=== PATIENT | female | born 1940 | race African-American/Black ===

== ENCOUNTER 2018-07-28 08:19 | Emergency (ER) | payer MEDICARE, MEDICAID ==
[2018-07-28] MEDS ORDERED: Acetaminophen 500 MG TAB ONE (09:18)
== END 2018-07-28 10:45 | disposition home or self-care (01) ==
LOC: ERS 08:19
DX: K62.3 Rectal prolapse (principal); I10 Essential (primary) hypertension; J43.9 Emphysema, unspecified; F41.9 Anxiety disorder, unspecified; F32.9 Major depressive disorder, single episode, unspecified; Z79.899 Other long term (current) drug therapy; Z87.891 Personal history of nicotine dependence
CPT/HCPCS: 99283

== ENCOUNTER 2019-08-31 17:23 | Observation (INO) | payer MEDICARE, MEDICAID ==
[2019-08-31 18:23] LABS: #Eosinphils 0.1 thou/uL (0.0-0.7); #Lymphocytes 1.8 thou/uL (1.20-3.40); #Monocytes 0.4 thou/uL (0.11-0.59); #Neutrophils 6.3 thou/uL (1.40-6.50); %Basophils 0.5 % (0.0-1.0); %Lymphocytes 21.1 % (21.0-51.0); %Monocytes 4.8 % (0.0-10.0); %Neutrophils 72.7 % (42.0-75.0); Hemoglobin 14.3 g/dL (12.0-16.0); Mean Corpuscular HGB CONC 32.9 g/dL (32.0-36.0); Mean Corpuscular Hemoglobin 28.9 pg (27.0-31.0); Mean Corpuscular Volume 87.9 fL (78.0-98.0); Mean Platelet Volume 7.7 fL (7.4-10.4); Platelet Count 230 thou/uL (130-400); RBC Distribution Width 14.5 % (11.5-14.5); Red Blood Cell (RBC) Count 4.94 mill/uL (4.20-5.40); White Blood Cell (WBC) Count 8.6 thou/uL (4.8-10.8)
--- NOTE | 2019-08-31 18:37 | RAD ---
EXAM: Portable chest PROVIDED CLINICAL HISTORY: Nausea and vomiting COMPARISON: 12/26/2014 FINDINGS: Cardiac silhouette appears enlarged, which may be least partially on the basis of portable technique. Rotation of the examination accentuates the appearance of the right hilum. No focal consolidation, pleural fluid or pneumothorax evident. IMPRESSION: No evidence for an acute cardiopulmonary process.
[2019-08-31 18:43] LABS: ALT (SGPT) Less than 7 U/L (8-55); AST (SGOT) 11 U/L (5-34); Albumin 4.6 g/dL (3.4-4.8); Alkaline Phosphatase 62 U/L (40-110); Anion Gap 17 mmol/L (10-20); BUN (Urea Nitrogen) 15 mg/dL (9.8-20.1); Bilirubin, Total 0.5 mg/dL (0.2-1.2); Calc. Creatinine Clearance 0 mL/min (70-130); Calcium 9.8 mg/dL (7.8-10.44); Carbon Dioxide 22 mmol/L (23-31); Chloride 106 mmol/L (98-107); Estimated GFR-MDRD 59; Globulin 3.6 g/dL (2.4-3.5); Glucose 94 mg/dL (83-110); Potassium 3.7 mmol/L (3.5-5.1); Protein, Total 8.2 g/dL (6.0-8.3); Sodium 141 mmol/L (136-145)
[2019-08-31 20:02] LABS: Bacteria/HPF None Seen HPF (None Seen); Bilirubin Negative (Negative); Blood, Urine Negative (Negative); Clarity Clear (Clear); Glucose, Urine (Dipstick) Normal (Negative); Leukocyte 75 Leu/uL (Negative); Nitrite Negative (Negative); Protein, Urine (Dipstick) Negative (Neg-Trace); RBC/HPF 0-3 HPF (0-3); Urobilinogen Normal mg/dL (Less than 2)
--- NOTE | 2019-08-31 20:51 | CT ---
Exam: CT brain PROVIDED CLINICAL HISTORY: Dizziness COMPARISON: None FINDINGS: The ventricular system is normal in size and morphology. Evaluation is limited by patient motion. Th ere is no evidence for mass-producing intracranial hemorrhage. Chronic microvascular ischemic changes are seen involving the cerebral white matter. The extracranial soft tissues and osseous struc tures demonstrate no evidence for an acute abnormality. IMPRESSION: No evidence for intracranial hemorrhage or mass effect with limitations as above.
[2019-08-31] MEDS ORDERED: Acetaminophen 325 MG TAB PO PRN (21:26)
--- NOTE | 2019-08-31 21:55 | PDOC.EVN ---
Event Note - Event Note Event Note: [id number]
[2019-08-31 22:56] VITALS: BMI 22.2
[2019-08-31] MEDS ORDERED: Ondansetron ODT 4 MG TAB SL PRN (23:06)
[2019-08-31] MEDS ORDERED: Ondansetron PF 4 MG/2 ML Vial IVP PRN (23:06)
[2019-08-31] MEDS ORDERED: HYDROcodone/Acetaminophen 5/325 mg Tablet PO PRN ×2 (23:06)
[2019-09-01] MEDS ORDERED: traMADol HCl 50 MG TAB PO PRN (00:16)
[2019-09-01] MEDS: Melatonin 3 MG TAB PO PRN ×2 (00:49→20:49)
--- NOTE | 2019-09-01 01:45 | HP ---
CHIEF COMPLAINT: Dizziness and possible syncope. HISTORY OF PRESENT ILLNESS: Ms. Aceves is a 78-year-old female with past medical history of COPD, emphysema, osteoporosis, hypertension, presented to the emergency room with dizziness that started suddenly this morning followed by ? syncope, also associated with nausea and vomiting. The patient states that she is not feeling well. She does not want to eat. She feels that she is dehydrated. She denies chest pain or palpitations. Denies fever or chills. Denies abdominal pain. Initial workup in the emergency room including CT of the brain, no acute finding. Troponin is less than 0.01. Electrolytes unremarkable. Chest x-ray, no acute finding. CT of the brain, no acute findings. The patient is being admitted to the hospital for further management. PAST MEDICAL HISTORY: 1. Osteoporosis. 2. COPD/emphysema. 3. Hypertension. PAST SURGICAL HISTORY: Tubal ligation. PAST PSYCHIATRIC HISTORY: Anxiety and depression. SOCIAL HISTORY: She smokes marijuana. Denies alcohol use. She is a former cigarette smoker. FAMILY HISTORY: Reviewed and noncontributory. HOME MEDICATIONS: See home medication reconciliation form for updated medications. ALLERGIES: NO KNOWN ALLERGIES. REVIEW OF SYSTEMS: Review of 14 systems negative except what is mentioned in history of present illness. PHYSICAL EXAMINATION: GENERAL: The patient is awake, alert, does not appear to be in acute distress. VITAL SIGNS: Blood pressure 130/79, pulse is 82, respiratory rate is 21, temperature 97.5. HEAD: Normocephalic, atraumatic. NECK: Supple. No JVD. CHEST: Fair bilateral air entry. HEART: S1, S2. Regular. ABDOMEN: Soft, nontender. Bowel sounds present. NEUROLOGIC: Awake, alert, and oriented x3. No focal deficits. PSYCHIATRIC: Normal mood. EXTREMITIES: No clubbing or cyanosis. LABORATORY DATA: As mentioned above in history of present illness. Chest x-ray is as mentioned above in history of present illness. CT of the brain as mentioned above in the history of present illness. ASSESSMENT: 1. Dizziness. 2. Syncope ? 3. Weakness. 4. Chronic obstructive pulmonary disease/emphysema. 5. Hypertension. PLAN: 1. Admit. 2. Telemetry monitoring. 3. Frequent neuro checks. 4. IV fluid hydration. 5. MRI of the brain. 6. 2D echo. 7. PT/OT eval and treat. 8. Reconcile home medications. 9. DVT prophylaxis as appropriate. 10. Expected length of stay at least one midnight if the patient is stable and further workup negative. Job ID: [id number]
[2019-09-01 04:56] LABS: #Eosinphils 0.1 thou/uL (0.0-0.7); #Lymphocytes 2.1 thou/uL (1.20-3.40); #Monocytes 0.5 thou/uL (0.11-0.59); #Neutrophils 3.6 thou/uL (1.40-6.50); %Basophils 0.6 % (0.0-1.0); %Eosinophils 1.1 % (0.0-10.0); %Lymphocytes 33.2 % (21.0-51.0); %Monocytes 8.3 % (0.0-10.0); %Neutrophils 56.8 % (42.0-75.0); Hemoglobin 12.7 g/dL (12.0-16.0); Mean Corpuscular HGB CONC 33.4 g/dL (32.0-36.0); Mean Corpuscular Volume 86.9 fL (78.0-98.0); Mean Platelet Volume 7.5 fL (7.4-10.4); Platelet Count 210 thou/uL (130-400); RBC Distribution Width 14.3 % (11.5-14.5); Red Blood Cell (RBC) Count 4.37 mill/uL (4.20-5.40); White Blood Cell (WBC) Count 6.3 thou/uL (4.8-10.8)
[2019-09-01 05:19] LABS: Anion Gap 11 mmol/L (10-20); BUN (Urea Nitrogen) 9 mg/dL (9.8-20.1); Calc. Creatinine Clearance 57 mL/min (70-130); Calcium 9.4 mg/dL (7.8-10.44); Carbon Dioxide 24 mmol/L (23-31); Chloride 111 mmol/L (98-107); Cholesterol 166 mg/dl (< 200 Desired); Estimated GFR-MDRD 87; Glucose 88 mg/dL (83-110); HDL Cholesterol 55 mg/dL (>60 Neg Risk); LDL Cholesterol, Calculated 95 mg/dL; Potassium 3.7 mmol/L (3.5-5.1); Sodium 142 mmol/L (136-145); Triglycerides 80 mg/dL (Less than 150)
[2019-09-01] MEDS: Mometasone/Formoterol 120 PUFF INHALER INH SCH ×2 (07:26→18:39)
[2019-09-01] MEDS ORDERED: Heparin 5,000 UNITS/ML VIAL SC SCH (09:00)
[2019-09-01] MEDS ORDERED: Amlodipine 10 MG TAB PO SCH (09:00)
[2019-09-01] MEDS ORDERED: Losartan 25 MG TAB PO SCH (09:00)
[2019-09-01] MEDS ORDERED: Naproxen 500 MG TAB PO PRN (09:00)
[2019-09-01] MEDS: Famotidine 20 MG TAB PO SCH ×2 (09:07→20:49)
[2019-09-01] MEDS: Aspirin 81 mg Enteric Coated Tablet PO SCH (09:07)
[2019-09-01] MEDS: Metoprolol Tartrate 25 MG TAB PO SCH ×2 (09:07→20:49)
[2019-09-01] MEDS: Montelukast Sodium 10 mg Tablet PO SCH (09:07)
[2019-09-01] MEDS: Heparin 5,000 UNITS/ML VIAL SC SCH ×3 (09:08→20:48)
[2019-09-01] MEDS: Sodium Chloride 0.9% 1,000 ML IV SCH ×2 (09:11→10:30)
--- NOTE | 2019-09-01 10:19 | MRI ---
MRI BRAIN WITHOUT CONTRAST: HISTORY: TIA CORRELATION: CT scan from 08/31/2019. FINDINGS: No restricted diffusion is seen. There are multiple foci of T2 prolongation in the periventricular wh ite matter, consistent with chronic small vessel ischemic disease. The ventricular size is appropriate and the basilar cisterns are patent. No evidence of acute infarct, hemorrhage, midline shift or abnormal extra-axial fluid collections is seen. IMPRESSION: No evidence of acute intracranial process.
[2019-09-01] MEDS ORDERED: Iopamidol 370 76% 100 ML VIAL ONE (10:55)
[2019-09-01] MEDS ORDERED: Scopolamine 1.5 mg/72 hour Patch TD SCH (15:00)
[2019-09-01] MEDS: cefTRIAXone\\ROCEPHIN 1 GM in Sodium Chloride 0.9% 100 ML IVPB SCH (16:52)
--- NOTE | 2019-09-01 17:18 | CON ---
DATE OF CONSULTATION: 09/01/2019 CHIEF COMPLAINT: Dizziness. HISTORY OF PRESENT ILLNESS: The patient reports she felt dizzy and had been throwing up. She felt like everything was spinning. She felt wobbly as well when walking. She does not have any ear problems. She does have a cough and upper respiratory infection. She has no history of any vision problems. No numbness. No weakness of the extremities was described to me and since her admission to the ER, she has completed most of her workup. PREVIOUS MEDICAL HISTORY: Includes hypertension, COPD, emphysema, and osteoporosis. PAST SURGICAL HISTORY: Includes tubal ligation, ovarian cyst. PREVIOUS PSYCHIATRIC HISTORY: Positive for anxiety and depression. SOCIAL HISTORY: She smokes marijuana. Denies no alcohol use. She used to smoke cigarettes in the past. FAMILY HISTORY: She has 1 brother and 2 sisters. One sister from lupus and the other due to drug use. Mother in her 80s to 90s. Father at 65 years of age. REVIEW OF SYSTEMS: PULMONARY: Positive for COPD. GI: Positive for nausea and vomiting. ENT: Negative for any ear problems. OPHTHALMOLOGIC: Negative for any vision issues. DERMATOLOGIC: Negative for any skin lesions. HEMATOLOGIC: Negative for any bleeding diathesis. CURRENT LABORATORY WORKUP: White count 6.3, hemoglobin 12.7, hematocrit 38, platelet count 210. Sodium 142, potassium 3.7, chloride 111, bicarb 24, BUN 9, creatinine 0.78, and glucose 88. Liver functions are within normal limits and lipid profile is normal. Her MRI of the brain was negative for any acute stroke and echocardiogram showed normal EF at 55% to 60%, normal-sized left atrium, some thickening of aortic valve leaflets, and diastolic dysfunction. No thrombus was noted. CT angio has not been done and I requested the same. PHYSICAL EXAMINATION: VITAL SIGNS: Temperature 99; pulse 71; blood pressure was 135/83 supine, standing was 112/83, sitting blood pressure 122/78. GENERAL APPEARANCE: Well-built, well-nourished lady, who is lying in bed. CHEST: Clear vesicular breathing, but she had rhonchi as well. CARDIOVASCULAR: S1 and S2 heard. No murmurs. ABDOMEN: Soft and nontender. No organomegaly noted. NEUROLOGIC: Higher intellectual functions. Normal oriented to time, place, and person. Appropriate conversation. Cranial nerves 2 through 12, normal extraocular movements. Pupils are 2 mm, reactive to light bilaterally with arcus senilis. Normal sensation of face bilaterally and tongue midline. No atrophy noted. Normal elevation of palate. Normal hearing bilaterally to finger rub. Motor exam; bulk normal, tone normal. Strength is 5/5 in upper and lower extremities at iliopsoas, hamstrings, quadriceps, ankle dorsiflexion, plantar flexion, deltoid, biceps, triceps, wrist extension and flexion, finger extension and flexion bilaterally. Deep tendon reflexes were 1+ throughout. Sensory was normal and normal touch bilaterally. Cerebellar, normal [id number] and [id number]. IMPRESSION: The patient is a 78-year-old lady with history of vertigo, which just started yesterday and currently, she is asymptomatic. Her symptoms have improved. She also had poor balance. No weakness, numbness, or vision symptoms are described, so current examination is normal. Diagnosis is most consistent with vertigo. Differential diagnosis is whether it is peripheral or central vertigo. RECOMMENDATIONS: 1. I would suggest scopolamine patch to help with vertiginous symptoms. 2. Please look into replenishing her IV fluids to see if the orthostatic blood pressure changes also improved, which can contribute to dizziness, but not vertigo. 3. I will request a CT angiogram of head and neck area to see if there is any vascular vaso-occlusive disease. I will follow up with you tomorrow. Job ID: [id number]
--- NOTE | 2019-09-01 18:10 | CT ---
CTA OF THE HEAD WITH AND WITHOUT IV CONTRAST AND 3-D REFORMATTED IMAGING. CTA OF THE NECK WITH IV CONTRAST AND 3-D REFORMATTED IMAGING. INDICATION: Vertigo; concern for stroke and TIA COMPARISON: MR the brain dated September 01, [address] of the brain dated August 31, 2019. FINDINGS: CTA OF THE HEAD WITH AND WITHOUT CONTRAST: NONCONTRAST CT OF BRAIN: Hemorrhage: None [place]/Infarction: None. Midline Shift: None. Hydrocephalus: None. Skull and Extracranial Soft tissues: Normal. 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 No hemodynamically significant stenosis is evident. Right MCA: Patent. Right ALBERTO: Patent. ACOM: Patent. Left ICA: Patent. Left MCA: Patent. Left ALBERTO: Patent. PCOMs: Patent. Vertebral arteries: Patent. Basilar Artery: Patent. safety technician: Patent. Incidentals: None. CTA OF THE NECK WITH CONTRAST: Right CCA: Patent. Right ICA: Tortuous but patent Right Subclavian: Patent. Right Vertebral Artery: Patent. Left CCA: Patent. Left ICA: Tortuous but patent Left Subclavian: Patent. Left Vertebral Artery: Patent. Aerodigestive tract: Clear. Parotids/Submandibular/Thyroid glands: There are multiple nodules involving the thyroid gland. The l argest is seen within the left mid thyroid lobe measuring 1.8 cm. Lymph nodes: No pathologically enlarged lymph nodes. Lung Apices: Emphysema pleural-parenchymal scarring involving the lung apices. Bones: Stable wedge compression fracture of T6 when compared to a CT of the thorax dated 01/12/2012. Incidentals: None. IMPRESSION: 1. No hemodynamically significant stenosis, occlusion or aneurysmal formation. 2. Congenital persistent right trigeminal artery. 3. Thyroid nodules. Follow-up nonemergent thyroid ultrasound is recommended.
--- NOTE | 2019-09-01 20:48 | PDOC.HOSPP ---
- Subjective Encounter Date: 09/01/19 Encounter Time: 15:00 Subjective: Patient seen and examined for near syncope. Orthostatic vitals positive. No CP/ SOB. No new complaints. No overnight events - Objective Vital Signs & Weight: Vital Signs (12 hours) Temp Pulse Pulse Resp BP BP Pulse Ox 09/01/19 19:24 99.0 F 83 16 128/72 96 09/01/19 15:26 99.0 F 71 16 121/75 96 09/01/19 12:03 98.9 F 71 20 128/70 96 09/01/19 09:37 74 112/83 Weight Admit Weight 129 lb 11.2 oz Weight 129 lb 11.2 oz I&O: 08/31/19 09/01/19 09/02/19 06:59 06:59 06:59 Intake Total 770 1070 Output Total 650 600 Balance 120 470 Result Diagrams: 09/01/19 04:36 09/01/19 04:36 Radiology Reviewed by me: Yes (MRI brain - No CVA) EKG Reviewed by me: Yes (Tele SR) Hospitalist ROS - Review of Systems Respiratory: denies: cough, dry, shortness of breath, hemoptysis, SOB with excertion, pleuritic pain, sputum, wheezing, other Cardiovascular: denies: chest pain, palpitations, orthopnea, paroxysmal noc. dyspnea, edema, light headedness, other - Medication Medications: Active Medications Generic Name Dose Route Start Last Admin Trade Name Freq PRN Reason Stop Dose Admin Aspirin 81 mg 09/01/19 09:00 09/01/19 09:07 Ecotrin PO 81 mg DAILY LEDY Administration Famotidine 20 mg 09/01/19 09:00 09/01/19 09:07 Pepcid PO 20 mg BID LEDY Administration Ceftriaxone Sodium 1 gm/ 100 mls @ 200 mls/hr 09/01/19 15:00 09/01/19 16:52 Sodium Chloride IVPB 100 mls 1500 LEDY Administration Melatonin 3 mg 09/01/19 00:16 09/01/19 00:49 Melatonin PO 3 mg HS PRN Administration Insomnia Metoprolol Tartrate 25 mg 09/01/19 09:00 09/01/19 09:07 Lopressor PO 25 mg BID LEDY Administration Mometasone Furoate/Formoterol Fumar 2 puff 09/01/19 06:30 09/01/19 18:39 Dulera 200 Mcg/5 Mcg Inhaler INH 2 puff BID-RT LEDY Administration Montelukast Sodium 10 mg 09/01/19 09:00 09/01/19 09:07 Singulair PO 10 mg DAILY LEDY Administration Scopolamine 1.5 mg 09/01/19 15:00 09/01/19 16:52 Transderm Scop TD 1.5 mg Q3D LEDY Administration - Exam General Appearance: NAD Neck: no JVD Heart: RRR, no gallops, no rubs, normal peripheral pulses Respiratory: CTAB, no wheezes, no rales, no ronchi Gastrointestinal: soft, non-tender, non-distended, normal bowel sounds Extremities: no cyanosis, no edema Hosp A/P - Plan DVT proph w/SCDs Gen weakness/Near syncope prob due to Orthostatic hypotension/E coli UTI (POA) HTN CKD 2 Anxiety COPD PLAN: IV Ceftriaxone for UTI Reduce Amlodipine and Losartan dose Cont other meds MRI brain - neg Check Vit B12 and folic acid in AM Fall precautions PT
[2019-09-01] MEDS: Mirtazapine 15 MG Soltab PO SCH (20:49)
[2019-09-01] MEDS: Atorvastatin Calcium 20 MG TAB PO SCH (20:49)
[2019-09-02] MEDS: Mometasone/Formoterol 120 PUFF INHALER INH SCH ×2 (07:55→19:17)
[2019-09-02] MEDS: Metoprolol Tartrate 25 MG TAB PO SCH ×2 (09:16→20:43)
[2019-09-02] MEDS: Famotidine 20 MG TAB PO SCH ×2 (09:16→20:43)
[2019-09-02] MEDS: Losartan 25 MG TAB PO SCH (09:16)
[2019-09-02] MEDS: Montelukast Sodium 10 mg Tablet PO SCH (09:16)
[2019-09-02] MEDS: Amlodipine 5 MG TAB PO SCH (09:16)
[2019-09-02] MEDS: Aspirin 81 mg Enteric Coated Tablet PO SCH (09:16)
[2019-09-02] MEDS: Saccharomyces boulardii 250 MG CAP PO SCH (09:16)
[2019-09-02] MEDS: Heparin 5,000 UNITS/ML VIAL SC SCH ×2 (09:17→20:44)
[2019-09-02] MEDS ORDERED: Megestrol Acetate 800 MG/20 ML UDCUP PO SCH (13:00)
[2019-09-02] MEDS: cefTRIAXone\\ROCEPHIN 1 GM in Sodium Chloride 0.9% 100 ML IVPB SCH (15:14)
--- NOTE | 2019-09-02 18:28 | PRG ---
DATE OF SERVICE: 09/02/2019 CHIEF COMPLAINT: Dizziness. INTERVAL HISTORY: The patient reports she is no longer dizzy and is feeling very good and is planned for discharge tomorrow. Her CT angiogram results were reviewed with the patient, and they were negative, and information was conveyed to the patient. Please continue scopolamine patch for now, and she can see a neurologist as needed once discharged. Job ID: [id number]
[2019-09-02] MEDS: Melatonin 3 MG TAB PO PRN (20:43)
[2019-09-02] MEDS: Atorvastatin Calcium 20 MG TAB PO SCH (20:43)
[2019-09-02] MEDS: Mirtazapine 15 MG Soltab PO SCH (21:07)
[2019-09-03] MEDS: Mometasone/Formoterol 120 PUFF INHALER INH SCH (07:22)
[2019-09-03 07:37] VITALS: BP 121/79; TEMP 99
[2019-09-03] MEDS: Aspirin 81 mg Enteric Coated Tablet PO SCH (08:05)
[2019-09-03] MEDS: Metoprolol Tartrate 25 MG TAB PO SCH (08:05)
[2019-09-03] MEDS: Losartan 25 MG TAB PO SCH (08:05)
[2019-09-03] MEDS: Amlodipine 5 MG TAB PO SCH (08:05)
[2019-09-03] MEDS: Montelukast Sodium 10 mg Tablet PO SCH (08:05)
[2019-09-03] MEDS: Famotidine 20 MG TAB PO SCH (08:05)
[2019-09-03] MEDS: Saccharomyces boulardii 250 MG CAP PO SCH (08:05)
[2019-09-03] MEDS: Heparin 5,000 UNITS/ML VIAL SC SCH (08:06)
[2019-09-03] MEDS ORDERED: Megestrol Acetate 800 MG/20 ML UDCUP PO SCH (09:00)
== END 2019-09-03 12:11 | disposition home or self-care (01) ==
LOC: ERS 17:23 → 2SW 21:10
PROVIDERS: ADMIT Internal Medicine; ATTEND Internal Medicine
DX: R42 Dizziness and giddiness (principal); R53.1 Weakness; J43.9 Emphysema, unspecified; I12.9 Hypertensive chronic kidney disease with stage 1 through stage 4 chronic kidney disease, or unspecified chronic kidney disease; N18.2 Chronic kidney disease, stage 2 (mild); F41.9 Anxiety disorder, unspecified; F32.9 Major depressive disorder, single episode, unspecified; M81.0 Age-related osteoporosis without current pathological fracture; Z79.899 Other long term (current) drug therapy; Z87.891 Personal history of nicotine dependence
CPT/HCPCS: 70450; 70496; 70498; 70551; 71045; 80048; 80053; 80061; 82607; 82746; 84484; 85025 ×2; 87077; 87086; 87186; 93005; 93306; 94640 ×4; 96361 ×3; 96365; 96372 ×2; 96376; 97139 ×5; 99285; G0378 ×5; 36415; 81003; 81015; 96360; J0696; J1644; J3490; J7620; Q9967

== ENCOUNTER 2020-02-18 11:53 | Emergency (ER) | payer MEDICARE, OTHER ==
[2020-02-18] MEDS ORDERED: Acetaminophen 325 MG TAB ONE (13:06)
== END 2020-02-18 13:00 | disposition home or self-care (01) ==
LOC: ERS 11:53
DX: H92.01 Otalgia, right ear (principal); I10 Essential (primary) hypertension; J43.9 Emphysema, unspecified; M81.0 Age-related osteoporosis without current pathological fracture; F41.9 Anxiety disorder, unspecified; F32.9 Major depressive disorder, single episode, unspecified; Z87.891 Personal history of nicotine dependence; Z79.899 Other long term (current) drug therapy; Z79.891 Long term (current) use of opiate analgesic
CPT/HCPCS: 99283

== ENCOUNTER 2021-12-27 00:03 | Observation (INO) | payer MEDICARE, MEDICAID ==
[2021-12-27 00:30] LABS: #Eosinphils 0.1 thou/uL (0.0-0.7); #Lymphocytes 2.3 thou/uL (1.20-3.40); #Monocytes 0.5 thou/uL (0.11-0.59); %Basophils 0.3 % (0.0-1.0); %Eosinophils 1.1 % (0.0-10.0); %Lymphocytes 28.7 % (21.0-51.0); %Monocytes 6.8 % (0.0-10.0); %Neutrophils 63.2 % (42.0-75.0); Hemoglobin 12.6 g/dL (12.0-16.0); Mean Corpuscular HGB CONC 32.1 g/dL (32.0-36.0); Mean Corpuscular Hemoglobin 30.3 pg (27.0-31.0); Mean Corpuscular Volume 94.5 fL (78.0-98.0); Mean Platelet Volume 7.7 fL (7.4-10.4); Platelet Count 193 thou/uL (130-400); RBC Distribution Width 14.8 % (11.5-14.5); Red Blood Cell (RBC) Count 4.16 mill/uL (4.20-5.40); White Blood Cell (WBC) Count 7.8 thou/uL (4.8-10.8)
[2021-12-27] MEDS ORDERED: Aspirin Chewable 81 MG TAB ONE (00:37)
[2021-12-27 00:39] LABS: INR-International Normal Ratio 1.1; PTT 27.7 sec (22.9-36.1); Prothrombin Time 14.4 sec (12.0-14.7)
[2021-12-27 00:49] LABS: ALT (SGPT) 11 U/L (8-55); AST (SGOT) 20 U/L (5-34); Albumin 3.5 g/dL (3.4-4.8); Alkaline Phosphatase 42 U/L (40-110); Anion Gap 14 mmol/L (10-20); BUN (Urea Nitrogen) 14 mg/dL (9.8-20.1); Bilirubin, Total 0.2 mg/dL (0.2-1.2); Calc. Creatinine Clearance 0 mL/min (70-130); Calcium 8.2 mg/dL (7.8-10.44); Carbon Dioxide 18 mmol/L (23-31); Chloride 110 mmol/L (98-107); Globulin 2.7 g/dL (2.4-3.5); Glucose 124 mg/dL (83-110); Potassium 3.4 mmol/L (3.5-5.1); Protein, Total 6.2 g/dL (5.8-8.1); Sodium 139 mmol/L (136-145)
[2021-12-27 01:03] LABS: Bacteria/HPF None Seen HPF (None Seen); Bilirubin Negative (Negative); Blood, Urine Negative (Negative); Clarity Clear (Clear); Glucose, Urine (Dipstick) Normal (Negative); Ketone, Urine Negative (Negative); Leukocyte Negative Leu/uL (Negative); Nitrite Negative (Negative); Protein, Urine (Dipstick) 30 mg/dL (Neg-Trace); RBC/HPF 0-3 HPF (0-3); Specific Gravity, Urine 1.019 (1.002-1.036); Squamous Epithelial 0-3 HPF (0-3); Urobilinogen Normal mg/dL (Less than 2); WBC/HPF 0-3 HPF (0-3)
[2021-12-27 02:05] LABS: Amphetamine Not Detected (NotDetected); Barbiturates Screen Not Detected (NotDetected); Benzodiazepine Screen Not Detected (NotDetected); Cocaine Metabolite Screen Not Detected (NotDetected); Methadone Not Detected (NotDetected); Methamphetamine Not Detected (NotDetected); Opiate Screen Not Detected (NotDetected); Oxycodone Screen Not Detected (NotDetected); Phencyclidine (PCP) Not Detected (NotDetected); THC/Cannabinoid Screen Detected (NotDetected); Tricyclic Screen Not Detected (NotDetected)
[2021-12-27] MEDS ORDERED: Ondansetron PF 4 MG/2 ML Vial IVP PRN (03:10)
[2021-12-27] MEDS ORDERED: hydrALAZINE 20 MG/ML VIAL SLOW IVP PRN (03:10)
[2021-12-27] MEDS ORDERED: Labetalol HCl 100 MG/20 ML VIAL SLOW IVP PRN (03:10)
[2021-12-27] MEDS ORDERED: Acetaminophen 325 MG TAB PO PRN (03:10)
[2021-12-27] MEDS ORDERED: Potassium Chloride 10 MEQ in Premix Bag 1 BAG IVPB SCH (03:45)
[2021-12-27 04:17] LABS: #Monocytes 0.2 thou/uL (0.11-0.59); #Neutrophils 6.3 thou/uL (1.40-6.50); %Basophils 0.3 % (0.0-1.0); %Eosinophils 0.2 % (0.0-10.0); %Lymphocytes 12.7 % (21.0-51.0); %Neutrophils 83.8 % (42.0-75.0); Hemoglobin 13.4 g/dL (12.0-16.0); Mean Corpuscular HGB CONC 32.4 g/dL (32.0-36.0); Mean Corpuscular Hemoglobin 30.2 pg (27.0-31.0); Mean Corpuscular Volume 93.1 fL (78.0-98.0); Mean Platelet Volume 7.5 fL (7.4-10.4); Platelet Count 218 thou/uL (130-400); RBC Distribution Width 14.9 % (11.5-14.5); Red Blood Cell (RBC) Count 4.46 mill/uL (4.20-5.40); White Blood Cell (WBC) Count 7.5 thou/uL (4.8-10.8)
[2021-12-27 04:36] LABS: Anion Gap 14 mmol/L (10-20); BUN (Urea Nitrogen) 11 mg/dL (9.8-20.1); Calc. Creatinine Clearance 41 mL/min (70-130); Carbon Dioxide 22 mmol/L (23-31); Cardiac Risk 2.4 (Less than 4.5); Chloride 107 mmol/L (98-107); Cholesterol 189 mg/dl (< 200 Desired); Glucose 141 mg/dL (83-110); HDL Cholesterol 80 mg/dL (>60 Neg Risk); LDL Cholesterol, Calculated 99 mg/dL; Magnesium 1.9 mg/dL (1.6-2.6); Potassium 3.3 mmol/L (3.5-5.1); Sodium 140 mmol/L (136-145); Triglycerides 49 mg/dL (Less than 150)
[2021-12-27 04:41] LABS: Troponin I 0.014 ng/mL (< 0.028)
[2021-12-27 04:45] VITALS: BMI 20.2
[2021-12-27 07:44] LABS: Troponin I 0.011 ng/mL (< 0.028)
[2021-12-27] MEDS ORDERED: Mometasone 200 MCG/Formoterol 5 MCG 120 PUFF INHALER INH SCH ×2 (08:15→18:30)
[2021-12-27 08:40] LABS: Free T4 (Free Thyroxine) 0.85 ng/dL (0.70-1.48)
[2021-12-27] MEDS ORDERED: Aspirin Chewable 81 MG TAB PO SCH (09:00)
[2021-12-27] MEDS ORDERED: Montelukast Sodium 10 mg Tablet PO SCH (09:00)
[2021-12-27] MEDS ORDERED: Enoxaparin Sodium 40 MG/0.4 ML SYRINGE SC SCH (09:00)
[2021-12-27] MEDS ORDERED: Amlodipine 10 MG TAB PO SCH (09:00)
[2021-12-27] MEDS ORDERED: Losartan 25 MG TAB PO SCH (09:00)
[2021-12-27] MEDS ORDERED: Metoprolol Tartrate 25 MG TAB PO SCH (09:00)
[2021-12-27] MEDS ORDERED: Iopamidol-370 76% 500 ML 1 ML ONE (10:28)
[2021-12-27 14:23] LABS: SARS-CoV-2 PCR by NAA Not Detected (NotDetected)
[2021-12-27 16:10] VITALS: BP 129/82; TEMP 99.5
[2021-12-27] MEDS ORDERED: Atorvastatin Calcium 20 MG TAB PO SCH (21:00)
[2021-12-27] MEDS ORDERED: Mirtazapine 15 MG Soltab PO SCH (21:00)
== END 2021-12-27 18:49 | disposition home or self-care (01) ==
LOC: ERS 00:03 → NEURO 01:55
PROVIDERS: ADMIT Internal Medicine; ATTEND Internal Medicine
DX: R55 Syncope and collapse (principal); R29.810 Facial weakness; R41.82 Altered mental status, unspecified; I44.0 Atrioventricular block, first degree; I13.0 Hypertensive heart and chronic kidney disease with heart failure and stage 1 through stage 4 chronic kidney disease, or unspecified chronic kidney disease; N18.30 Chronic kidney disease, stage 3 unspecified; I50.32 Chronic diastolic (congestive) heart failure; J44.9 Chronic obstructive pulmonary disease, unspecified; M81.0 Age-related osteoporosis without current pathological fracture; E04.2 Nontoxic multinodular goiter; F12.10 Cannabis abuse, uncomplicated; R63.4 Abnormal weight loss; R63.0 Anorexia; Z68.20 Body mass index [BMI] 20.0-20.9, adult; Z87.891 Personal history of nicotine dependence; Z79.899 Other long term (current) drug therapy; Z20.822 Contact with and (suspected) exposure to COVID-19
CPT/HCPCS: 70450; 70496; 70498; 70551; 71045; 80048; 80061; 80306; 83735; 84439; 84481; 84484 ×2; 85610; 85730; 93005; 99285; U0003; U0005; 36415; 80053; 81003; 81015; 84443; 85025; 96372; G0378; J1650; J3480; Q9967

== ENCOUNTER 2022-07-02 04:02 | Emergency (ER) | payer MEDICARE, MEDICAID ==
[2022-07-02] MEDS ORDERED: Acetaminophen 500 MG TAB ONE (05:27)
== END 2022-07-02 07:03 | disposition home or self-care (01) ==
LOC: ERS 04:02
DX: R51.9 Headache, unspecified (principal); I10 Essential (primary) hypertension; F17.210 Nicotine dependence, cigarettes, uncomplicated; Z79.899 Other long term (current) drug therapy
CPT/HCPCS: 70450

== ENCOUNTER 2024-10-11 19:34 | Inpatient (IN) | payer OTHER, MEDICAID ==
[~2024-10-11 19:34] MED LIST: Iopamidol-370 76% 500 ML MDV (1 ML CHARGE) ONE
[2024-10-11 20:16] LABS: #Basophils 0.04 10x3/uL (0.0-0.2); %Basophils 0.4 % (0.0-1.0); %Eosinophils 2.4 % (0.0-10.0); %Lymphocytes 12.9 % (21.0-51.0); %Monocytes 10.4 % (0.0-10.0); %Neutrophils 71.4 % (42.0-75.0); Hematocrit 25.2 % (36.0-47.0); Hemoglobin 7.6 g/dL (12.0-16.0); Mean Corpuscular HGB CONC 30.2 g/dL (32.0-36.0); Mean Corpuscular Hemoglobin 27.8 pg (27.0-31.0); Mean Corpuscular Volume 92.3 fL (78.0-98.0); Mean Platelet Volume 9.7 fL (7.4-10.4); Platelet Count 229 10x3/uL (130-400); RBC Distribution Width 17.2 % (11.5-14.5); Red Blood Cell (RBC) Count 2.73 mill/uL (4.20-5.40)
[2024-10-11 20:32] LABS: Bacteria/HPF None Seen HPF (None Seen); Bilirubin Negative (Negative); Blood, Urine Negative (Negative); CAUTI Indications for Culture Alt mental st,lethar; Clarity Clear (Clear); Glucose, Urine (Dipstick) Normal (Negative); Ketone, Urine Negative (Negative); Leukocyte Negative Leu/uL (Negative); Nitrite Negative (Negative); Protein, Urine (Dipstick) 20 mg/dL (Neg-Trace); RBC/HPF None Seen HPF (0-3); Specific Gravity, Urine 1.016 (1.002-1.036); Squamous Epithelial 0-3 HPF (0-3); WBC/HPF 0-3 HPF (0-3); pH, Urine 5.5 (5.0-9.0)
[2024-10-11 20:39] LABS: ALT (SGPT) 10 U/L (Less than 34); AST (SGOT) 20 U/L (11-34); Albumin 1.7 g/dL (3.1-4.5); Alkaline Phosphatase 46 U/L (40-110); Anion Gap 11 mmol/L (10-20); BUN (Urea Nitrogen) 24 mg/dL (9.8-20.1); Bilirubin, Total 0.4 mg/dL (0.3-1.2); Calc. Creatinine Clearance 0 mL/min (70-130); Calcium 8.2 mg/dL (7.8-10.44); Carbon Dioxide 21 mmol/L (23-31); Chloride 113 mmol/L (98-107); Estimated GFR 53; Globulin 4.1 g/dL (2.4-3.5); Glucose 128 mg/dL (83-110); Potassium 3.4 mmol/L (3.5-5.1); Protein, Total 5.8 g/dL (5.8-8.1); Sodium 142 mmol/L (136-145)
[2024-10-11 20:49] LABS: Urine Culture Reflex No No
[2024-10-11 20:50] LABS: Troponin I 0.252 ng/mL (< 0.028)
[2024-10-11] MEDS ORDERED: Sodium Chloride 0.9% 100 ML ONE (21:35)
[2024-10-11] MEDS ORDERED: Piperacillin/Tazobactam 4.5 GM VIAL ONE (21:35)
[2024-10-11] MEDS ORDERED: Vancomycin 1 GM/200 ML (FROZEN) BAG ONE (22:25)
[2024-10-11] MEDS ORDERED: Acetaminophen 650 MG Suppository PR PRN (23:27)
[2024-10-11] MEDS ORDERED: Acetaminophen 325 MG TAB PO PRN (23:27)
[2024-10-11] MEDS ORDERED: Ondansetron ODT 4 MG TAB PO PRN (23:27)
[2024-10-11] MEDS ORDERED: Ondansetron PF 4 MG/2 ML Vial IVP PRN (23:27)
[2024-10-11] MEDS ORDERED: Calcium Carbonate 500 MG ChewTAB PO PRN (23:27)
[2024-10-12 00:13] LABS: Lactic Acid 2.58 mmol/L (0.50-2.20)
[2024-10-12] MEDS ORDERED: Electrolyte Replacement Protocol 1 EACH FS PRN (00:19)
[2024-10-12 00:20] LABS: Troponin I 0.264 ng/mL (< 0.028)
[2024-10-12] MEDS ORDERED: Cyanocobalamin 1000 MCG/ML VIAL IM SCH (00:30)
[2024-10-12 01:06] VITALS: BMI 14.3
[2024-10-12 01:12] LABS: Actual Bicarbonate (HCO3a) 17.4 mEq/L (22-28); CO2 Tension 44.9 mmHg (35.0-45.0); Calcium, Ionized (arterial) 1.19 mmol/L (1.12-1.30); Carboxyhemoglobin (COHb) 0.6 gm% (0.0-3.0); Hematocrit-ABG 27 % (36.0-47.0); Hemoglobin (Hb) 9.1 g/dL (12.0-16.0); Potassium - ABG Lab 3.79 mmol/L (3.70-5.30)
[2024-10-12 01:14] LABS: pH, Arterial 7.205 (7.35-7.45)
[2024-10-12 01:15] LABS: ALV-art Gradient 317.375 mmHg (0-20); O2 Tension (PaO2), arterial 54.3 mmHg (> 60.0); Puncture Site Left Radial artery
[2024-10-12] MEDS: Albumin 25% 25 GM (100 mL) BOT IVPB SCH ×2 (01:34→05:58)
[2024-10-12] MEDS: Sodium Bicarb 50 MEQ/50 ML Abboject 8.4% SYRINGE IVP SCH (01:34)
[2024-10-12] MEDS: Thiamine HCl 200 MG/2 ML VIAL SLOW IVP SCH (01:34)
[2024-10-12] MEDS: Dextrose 5% in Water 1,000 ML IV SCH (01:34)
[2024-10-12 03:52] LABS: ALT (SGPT) 11 U/L (Less than 34); AST (SGOT) 19 U/L (11-34); Albumin 2.5 g/dL (3.1-4.5); Alkaline Phosphatase 43 U/L (40-110); Anion Gap 14 mmol/L (10-20); BUN (Urea Nitrogen) 19 mg/dL (9.8-20.1); Bilirubin, Total 0.6 mg/dL (0.3-1.2); Calc. Creatinine Clearance 30 mL/min (70-130); Calcium 7.8 mg/dL (7.8-10.44); Carbon Dioxide 25 mmol/L (23-31); Chloride 115 mmol/L (98-107); Estimated GFR 58; Globulin 3.8 g/dL (2.4-3.5); Glucose 155 mg/dL (83-110); Potassium 3.6 mmol/L (3.5-5.1); Protein, Total 6.3 g/dL (5.8-8.1); Sodium 150 mmol/L (136-145)
[2024-10-12 03:57] LABS: Critical Call Chem Troponin I RESULT DECREASING; Troponin I 0.222 ng/mL (< 0.028)
[2024-10-12] MEDS ORDERED: Cefepime 1 GM in Sodium Chloride 0.9% 100 ML IVPB SCH (09:00)
[2024-10-12] MEDS: Cefepime 1 GM in Sodium Chloride 0.9% 100 ML IVPB SCH (09:31)
[2024-10-12] MEDS: Folic Acid 5 MG/ML MDV SC SCH (09:31)
[2024-10-12] MEDS: Famotidine 20 MG TAB PO SCH (09:31)
[2024-10-12] MEDS: Famotidine/PF 20 mg/2ml Vial SLOW IVP SCH (09:31)
[2024-10-12] MEDS: FLU (Fluad Triv) TS24-25 (65UP)/MF59C/PF 45 MCG/0.5 ML Syringe IM ONE (12:14)
[2024-10-12] MEDS: Dexmedetomidine In 0.9 % NaCl 100 ML IVPB SCH (14:23)
[2024-10-12] MEDS: Ipratropium/Albuterol 3 ML NEB NEB PRN (15:09)
[2024-10-12] MEDS: Lorazepam 2 MG/ML VIAL SLOW IVP SCH (15:10)
[2024-10-12] MEDS ORDERED: Ipratropium/Albuterol 3 ML NEB NEB PRN (15:11)
[2024-10-12] MEDS: Lorazepam 2 MG/ML VIAL ONE (15:49)
[2024-10-12 16:31] VITALS: BMI 14.3
[2024-10-12] MEDS: Budesonide 0.5 MG/2 ML NEB INH SCH (18:46)
[2024-10-12] MEDS: Cefepime 2 GM in Sodium Chloride 0.9% 100 ML IVPB SCH (21:09)
[2024-10-13] MEDS: Lorazepam 2 MG/ML VIAL SLOW IVP SCH ×3 (02:16→22:31)
[2024-10-13 10:28] LABS: Anion Gap 13 mmol/L (10-20); BUN (Urea Nitrogen) 17 mg/dL (9.8-20.1); Calc. Creatinine Clearance 32 mL/min (70-130); Calcium 8.4 mg/dL (7.8-10.44); Carbon Dioxide 24 mmol/L (23-31); Chloride 113 mmol/L (98-107); Estimated GFR 60; Glucose 97 mg/dL (83-110); Potassium 3.8 mmol/L (3.5-5.1); Sodium 146 mmol/L (136-145)
[2024-10-13 10:32] LABS: Hematocrit 19.2 % (36.0-47.0); Hemoglobin 5.8 g/dL (12.0-16.0); Mean Corpuscular HGB CONC 30.2 g/dL (32.0-36.0); Mean Corpuscular Hemoglobin 28.2 pg (27.0-31.0); Mean Corpuscular Volume 93.2 fL (78.0-98.0); Mean Platelet Volume 10.2 fL (7.4-10.4); Platelet Count 170 10x3/uL (130-400); RBC Distribution Width 17.7 % (11.5-14.5); Red Blood Cell (RBC) Count 2.06 mill/uL (4.20-5.40)
[2024-10-13 17:14] VITALS: BP 116/75
[2024-10-14 00:18] LABS: Hematocrit 24.1 % (36.0-47.0); Hemoglobin 7.6 g/dL (12.0-16.0); Platelet Count 155 10x3/uL (130-400)
[2024-10-14 02:24] LABS: Hematocrit 24.7 % (36.0-47.0); Hemoglobin 7.7 g/dL (12.0-16.0); Mean Corpuscular HGB CONC 31.2 g/dL (32.0-36.0); Mean Corpuscular Hemoglobin 28.7 pg (27.0-31.0); Mean Corpuscular Volume 92.2 fL (78.0-98.0); Mean Platelet Volume 9.7 fL (7.4-10.4); Platelet Count 153 10x3/uL (130-400); RBC Distribution Width 16.8 % (11.5-14.5); Red Blood Cell (RBC) Count 2.68 mill/uL (4.20-5.40)
[2024-10-14 02:58] LABS: Anion Gap 13 mmol/L (10-20); BUN (Urea Nitrogen) 20 mg/dL (9.8-20.1); Calc. Creatinine Clearance 32 mL/min (70-130); Calcium 8.4 mg/dL (7.8-10.44); Carbon Dioxide 21 mmol/L (23-31); Chloride 113 mmol/L (98-107); Estimated GFR 59; Glucose 109 mg/dL (83-110); Potassium 3.6 mmol/L (3.5-5.1); Sodium 143 mmol/L (136-145)
[2024-10-14] MEDS: Lorazepam 2 MG/ML VIAL SLOW IVP PRN (10:51)
[2024-10-15 08:16] VITALS: TEMP 98.5
[2024-10-15] MEDS: Morphine 2 MG/ML VIAL SLOW IVP PRN (09:19)
[2024-10-15] MEDS ORDERED: Lorazepam 2 MG/ML VIAL SLOW IVP PRN (13:49)
[2024-10-15] MEDS ORDERED: Morphine 2 MG/ML VIAL SLOW IVP PRN (13:49)
[2024-10-15] MEDS: Scopolamine 1 mg/72 hour Patch TD SCH (14:07)
[2024-10-15] MEDS: Lorazepam 2 MG/ML VIAL SLOW IVP PRN (14:10)
[2024-10-15] MEDS: Morphine 4 MG/ML VIAL SLOW IVP PRN (14:18)
== END 2024-10-15 04:45 | disposition expired | DRG 871 ==
LOC: ERS 19:34 → CCU 23:27 → UNDODISIN 10-12 20:49
PROVIDERS: ADMIT Student in an Organized Health Care Education/Training Program; ATTEND Internal Medicine
PROC: 30233N1 Transfusion of Nonautologous Red Blood Cells into Peripheral Vein, Percutaneous Approach (ICD-10-PCS; principal; 2024-10-11)
PROC: 3E03329 Introduction of Other Anti-infective into Peripheral Vein, Percutaneous Approach (ICD-10-PCS; 2024-10-11)
PROC: 4A033R1 Measurement of Arterial Saturation, Peripheral, Percutaneous Approach (ICD-10-PCS; 2024-10-12)
PROC: 30233J1 Transfusion of Nonautologous Serum Albumin into Peripheral Vein, Percutaneous Approach (ICD-10-PCS; 2024-10-12)
PROC: 5A09457 Assistance with Respiratory Ventilation, 24-96 Consecutive Hours, Continuous Positive Airway Pressure (ICD-10-PCS; 2024-10-12)
PROC: 5A0935A Assistance with Respiratory Ventilation, Less than 24 Consecutive Hours, High Flow/Velocity Cannula (ICD-10-PCS; 2024-10-12)
DX: A41.9 Sepsis, unspecified organism (principal); E43 Unspecified severe protein-calorie malnutrition; J96.01 Acute respiratory failure with hypoxia; G93.41 Metabolic encephalopathy; I50.33 Acute on chronic diastolic (congestive) heart failure; I21.A1 Myocardial infarction type 2; J18.9 Pneumonia, unspecified organism; C34.01 Malignant neoplasm of right main bronchus; E87.20 Acidosis, unspecified; I13.0 Hypertensive heart and chronic kidney disease with heart failure and stage 1 through stage 4 chronic kidney disease, or unspecified chronic kidney disease; I50.32 Chronic diastolic (congestive) heart failure; E87.0 Hyperosmolality and hypernatremia; Z68.1 Body mass index [BMI] 19.9 or less, adult; Z51.5 Encounter for palliative care; Z66 Do not resuscitate; R91.8 Other nonspecific abnormal finding of lung field; N18.30 Chronic kidney disease, stage 3 unspecified; F32.A Depression, unspecified; F41.9 Anxiety disorder, unspecified; K76.89 Other specified diseases of liver; J44.9 Chronic obstructive pulmonary disease, unspecified; D63.1 Anemia in chronic kidney disease; Z98.51 Tubal ligation status; Z87.891 Personal history of nicotine dependence
CPT/HCPCS: 36415; 36416; 36430; 36600; 51701; 71045; 71275; 80048; 80053; 81001; 82805; 83605; 84484; 85025; 85027; 86850; 86900; 86901; 87040; 87086; 93005; 94640; 94660; 94760; 96361; 96365; 96367; J0692; J2060; J2270; J2272; J2543; J3370; J3411; J3490; J7070; J7620; J7626; P9016; P9047; Q9967